=== PATIENT | male | born 1970 | race Caucasian/White ===

== ENCOUNTER 2019-12-28 09:47 | Inpatient (IN) ==
[2019-12-28] MEDS ORDERED: ACETAMINOPHEN 325 MG TAB PO PRN (10:19)
[2019-12-28] MEDS ORDERED: ONDANSETRON INJ 2 MG/ML 2 ML VIAL IV PRN (10:19)
[2019-12-28] MEDS ORDERED: POLYETHYLENE (MIRALAX) 17 GM PACK PO PRN (10:19)
[2019-12-28] MEDS ORDERED: NITROGLYCERIN SL 0.4 MG/TAB TAB SL PRN (10:19)
[2019-12-28] MEDS ORDERED: ALUMINUM/MAGNESIUM SUSP 30 ML UDC PO PRN (10:19)
--- NOTE | 2019-12-28 10:24 | History & Physical Report ---
Date of Service December 28, 2019 Assessment & Plan (1) Unstable angina: Patient presents with typical symptoms of angina, chest heaviness, shortness of breath, with exertion, Pain radiating down to left arm and finger, associated with dizzy spell, lightheadedness, nausea CT chest with contrast done in [facility]: Negative for PE Coronary artery disease/coronary ischemia risk factors: Significant family history of premature coronary artery disease: Father CT at age 30s, had approximately [address] Grandfather: sudden cardiac at age 50s History of hypertension Ongoing smoking Admitted to telemetry floor, at present chest pain-free Cardiology eval requested Patient will need resting echo, cardiac stress test, cardiac angiogram/cardiac cath if needed Fasting lipid panel ordered in a.m. for risk stratification High blood pressure: BP stable continue lisinopril 40 mg daily Anxiety disorder: Continue outpatient med Lexapro 10 mg daily DVT prophylaxis: Subcu heparin CODE STATUS: Full code Disposition: Patient will be discharged home when medically stable Admission and Anticipated Discharge Date Admission Date: December 28, 2019 History of Present Illness Chief Complaint: Chest pain, chest heaviness Primary Care Provider: Pallavi Chin this Is a 49-year-old male with past medical history of high blood pressure, depression, presented to the ER in [facility] with symptoms of chest heaviness, dyspnea on exertion, starting for last 2-3 days. This Thursday patient felt very weak and fatigued, slept most part of the day, No fever or chills, has chronic nonproductive cough(Patient is a current smoker smokes 1 and half pack cigarettes a day.) Was seen in ER at [facility] 2 days ago, for chest pain, Noted to have elevated blood pressure, patient was discharged from ER with recommendation for outpatient follow-up. Yesterday patient felt chest heaviness on the left side with tingling and numbness radiating down to left arm and finger, associated with dizzy spell lightheadedness, nausea Came to [place] ER, symptom resolved after Nitropaste CTA chest negative for PE Troponin 0, EKG does not show any acute ST-T wave changes Been very concerning symptoms of unstable angina, patient will benefit with further cardiac work-up including diagnostic cardiac angiogram. [place] does not have a cardiac Drip Box Tender, Patient is transferred to [facility] for further care. Patient seen at bedside in room 222/1 Feels much better, having headaches due to Nitropaste. Not have any shortness of breath, complains of mild chest heaviness after Nitropaste was discontinued, No pleuritic chest pain, orthopnea,Vital stable Allergies Allergy/AdvReac Type Severity Reaction Status Date / Time prednisone AdvReac Unknown Verified 12/28/19 10:25 Home Medications Home Medications Medication Instructions Recorded Confirmed Type escitalopram oxalate mg 12/28/19 History lisinopril 12/28/19 History pantoprazole 40 mg PO DAILY 12/28/19 12/28/19 History Past Med/Surg History Social History Smoking Status: Current every day smoker Hx Alcohol Use: No Hx Substance Use: No Preferred Language: French Desktop Support Associate Required: No Beliefs That Will Affect Care: None Current Living Situation: Significant Other Other Information That Helps Us Care for You: No Feels Safe at Home: Yes Safety Concerns: Feels Safe At This Time Review of Systems Review of Systems: All systems reviewed & are unremarkable except as noted in HPI & below Constitutional: no fever, no body aches and no fatigue Respiratory: + cough and + dyspnea on exertion; no sputum production and no wheezing Cardiovascular: + chest pain, + chest pain with activity, + radiating jaw, neck or arm pain, + dyspnea, + dyspnea on exertion and + lightheadedness; no orthopnea, no syncope and no edema Physical Exam Constitutional: WD/WN, vitals as above no acute distress Eyes: PERRL, conjunctivae normal, anicteric sclerae ENMT: external ear and nose normal, oropharynx normal Neck: trachea midline, no thyromegaly Respiratory: normal respiratory effort, lungs clear to auscultation Cardiovascular: RRR, no murmur, no edema Gastrointestinal (Abdomen): Percussion/Palpation: abdomen soft; abdomen nontender Musculoskeletal: no cyanosis or clubbing, extremities motor strength 5/5 Skin: no rashes, warm and dry Neurologic: PERRL, EOMI, accommodation nl, no face palsy, no dysarthria Psychiatric: A+Ox3, euthymic affect Code Status & VTE Plan VTE Prophylaxis Plan VTE Prophylaxis will be ordered: Yes
[2019-12-28 11:05] LABS: Hematocrit (blood only) 40.9 % (42-52); Mean Corpuscular Hemoglobin 29.9 pg (25-34); Mean Corpuscular Hgb Conc 34.2 g/dL (32-36); Mean Corpuscular Volume 87.2 fL (80-100); Mean Platelet Volume 9.7 fL (7.4-10.4); Platelet Count 192 K/uL (130-400); RDW Coefficient of Variation 13.6 % (11.5-14.5); RDW Standard Deviation 43.2 fL (36.4-46.3); Red Blood Count 4.69 M/uL (4.7-6.1); White Blood Count 8.57 K/uL (4.8-10.8)
[2019-12-28] MEDS ORDERED: NITROGLYCERIN 2% OINTMENT 30GM TUBE EXT SCH (12:30)
--- NOTE | 2019-12-28 13:39 | Cardiology Consultation ---
Date of Consultation December 28, 2019 Assessment & Plan (1) Chest pain: (2) Hypertension: (3) Tobacco abuse: Initial work-up unremarkable for ischemia without significant EKG abnormalities or troponin elevation despite 5 days of symptoms. Resting echocardiogram unremarkable and proceed with exercise stress echocardiogram. Patient completed 11 minutes and 30 seconds of Prakash protocol without reproduction of chest discomfort. His blood pressure response to exercise was hypertensive. Given the above findings I do not see any cardiac causes for his chest discomfort. No further cardiac testing or intervention is necessary from a cardiac standpoint. Would consider musculoskeletal/sports medicine evaluation as an outpatient for a possible cervical or shoulder pathology. Cigarette abuse cessation discussed at great lengths. Recommend addition of aspirin 81 mg daily for primary prevention given his risk factors of tobacco abuse and father developing coronary disease in his 30s. Should follow-up with PCP for further risk management including blood pressure monitoring as well as lipid management. Okay to discharge from a cardiac standpoint History of Present Illness Reason for Consultation: chest pain Requesting Physician: Dr. Tipton Attending Physician: Ilda Tipton MD History of Present Illness Mr. Velez is a very pleasant 49-year-old gentleman who was transferred to [facility] directly from [place] emergency department for complaints of chest pain. He states his pain started approximately 5 days ago. He states he remembers waking up Thursday morning and just happened to have some chest discomfort. He states it was initially sharp and stabbing but that sensation was fleeting and then became more of a dull achy sensation. He states that over the next 5 days this discomfort waxed and waned and again with periods of sharp pain. He denied any associated symptoms until this morning when he developed concomitant tingling in his left shoulder that radiated down into his left hand noting particularly that his left second and third fingers were numb. At that time he sought medical attention at the emergency department. He denied any alleviating or aggravating factors. He denies any history of neck or shoulder pathology. No recent trauma to his chest and again he denied any associated shortness of breath, nausea, diaphoresis, palpitations, lightheadedness, dizziness or syncope. He states that the discomfort resolved after receiving a nitro patch in the emergency department however caused a severe headache. He is currently chest pain-free. Allergies Allergy/AdvReac Type Severity Reaction Status Date / Time prednisone AdvReac Unknown Verified 12/28/19 10:25 Home Medications Home Medications Medication Instructions Recorded Confirmed Type escitalopram oxalate 10 mg PO DAILY 12/28/19 12/28/19 History lisinopril 40 mg PO DAILY 12/28/19 12/28/19 History pantoprazole 40 mg PO DAILY 12/28/19 12/28/19 History Patient History Medical History Anxiety GERD (gastroesophageal reflux disease) Hypertension Surgical History History of appendectomy History of colonoscopy History of esophagogastroduodenoscopy (EGD) History of herniorrhaphy Social History Smoking Status: Current every day smoker Hx Alcohol Use: No Hx Substance Use: No Preferred Language: Armenian Merchandiser Required: No Beliefs That Will Affect Care: None Current Living Situation: Significant Other Other Information That Helps Us Care for You: No Feels Safe at Home: Yes Safety Concerns: Feels Safe At This Time Review of Systems Review of Systems: All systems reviewed & are unremarkable except as noted in HPI & below Physical Exam Physical Exam: Physical Exam: General: Awake, alert and oriented x 3. No acute distress. HEENT: Normocephalic, atraumatic. Pupils equal, round and reactive to light and accommodation. Extraocular muscles are intact. Anicteric sclera. Moist mucous membranes. Neck: No JVD. No bruit. Cardiovascular: Regular. No S-4. Normal S-1 and S-2. No S-3. No murmurs, rubs or gallops. Pulmonary: Clear to auscultation bilaterally. No rales, rhonchi, or wheezing. Abdomen: Bowel sounds x 4, soft. No rebound, guarding or tenderness. No organomegaly. Extremities: No clubbing, cyanosis or edema. +2 pedal pulses bilaterally. Skin: Warm and dry. Results & Data ([facility]) Vital Signs (Past 12 Hours) Vital Signs Temp Pulse Resp BP BP Pulse Ox 12/28/19 11:52 36.8 C 57 L 18 126/70 98 12/28/19 10:20 36.6 C 63 16 133/94 99
[2019-12-28] MEDS ORDERED: HEPARIN SOD 5,000 UNIT/0.5 ML VIAL SQ SCH (14:00)
--- NOTE | 2019-12-28 15:46 | Communication Note ---
Date of Service: December 28, 2019 Patient's resting echocardiogram shows no wall motion abnormality, serial troponin was negative exercise Cardiac stress test shows negative for stress-induced ischemia Noncardiac chest pain, Stable to be discharged home by cardiology Patient is strongly counseled for smoking cessation Will be started with aspirin 81 mg daily for primary prevention, given patient has high risk for coronary artery disease family history of premature CAD, ongoing tobacco abuse Needs outpatient close follow-up with family physician for blood pressure monitoring, needs a fasting lipid panel to be checked Patient is discharged home today Ilda Tipton MD
--- NOTE | 2019-12-28 15:52 | Discharge Summary ---
Date of Service December 28, 2019 Admission HPI Per Admitting Provider this Is a 49-year-old male with past medical history of high blood pressure, depression, presented to the ER in [facility] with symptoms of chest heaviness, dyspnea on exertion, starting for last 2-3 days. This Thursday patient felt very weak and fatigued, slept most part of the day, No fever or chills, has chronic nonproductive cough(Patient is a current smoker smokes 1 and half pack cigarettes a day.) Was seen in ER at [facility] 2 days ago, for chest pain, Noted to have elevated blood pressure, patient was discharged from ER with recommendation for outpatient follow-up. Yesterday patient felt chest heaviness on the left side with tingling and numbness radiating down to left arm and finger, associated with dizzy spell lightheadedness, nausea Came to [place] ER, symptom resolved after Nitropaste CTA chest negative for PE Troponin 0, EKG does not show any acute ST-T wave changes Been very concerning symptoms of unstable angina, patient will benefit with further cardiac work-up including diagnostic cardiac angiogram. [place] does not have a cardiac Tanning Solution Maker, Patient is transferred to [facility] for further care. Patient seen at bedside in room 222/1 Feels much better, having headaches due to Nitropaste. Not have any shortness of breath, complains of mild chest heaviness after Nitropaste was discontinued, No pleuritic chest pain, orthopnea,Vital stable Principal Diagnosis Chest pain Negative exercise cardiac stress test, Family history of premature coronary artery disease Ongoing tobacco use Discharge Exam Constitutional WD/WN, vitals as above no acute distress Eyes PERRL, conjunctivae normal, anicteric sclerae ENMT external ear and nose normal, oropharynx normal Neck trachea midline, no thyromegaly Respiratory normal respiratory effort, lungs clear to auscultation Cardiovascular RRR, no murmur, no edema Gastrointestinal (Abdomen) Percussion/Palpation: abdomen soft; abdomen nontender Musculoskeletal no cyanosis or clubbing, extremities motor strength 5/5 Skin no rashes, warm and dry Neurologic PERRL, EOMI, accommodation nl, no face palsy, no dysarthria Psychiatric A+Ox3, euthymic affect Discharge Data Allergies Allergy/AdvReac Type Severity Reaction Status Date / Time prednisone AdvReac Unknown Verified 12/28/19 10:25 Consultations 12/28/19 10:19 Consult Cardiology Routine Hospital Course (1) Unstable angina: Patient presents with typical symptoms of angina, chest heaviness, shortness of breath, with exertion, Pain radiating down to left arm and finger, associated with dizzy spell, lightheadedness, nausea CT chest with contrast done in [facility]: Negative for PE Coronary artery disease/coronary ischemia risk factors: Significant family history of premature coronary artery disease: Father [place] at age 30s, had approximately 3 [place] Grandfather: sudden cardiac at age 50s History of hypertension Ongoing smoking Admitted to telemetry floor, at present chest pain-free Cardiology eval requested resting echo no wall motion abnormality, Exercise cardiac stress test, negative for stress-induced ischemia Stable to be discharged home today, added aspirin 81 mg daily Smoking cessation counseling provided Patient needs follow-up with family physician for blood pressure monitoring, and fasting lipid panel check High blood pressure: BP stable continue lisinopril 40 mg daily Anxiety disorder: Continue outpatient med Lexapro 10 mg daily DVT prophylaxis: Subcu heparin CODE STATUS: Full code Disposition: Patient is discharged home today Total Time Total Time Spent Total Time Spent (In Minutes): 35 mins Total Time Includes: Examination of the Patient, Discharge Planning, Medication Reconciliation and Communication With Other Providers Discharge Plan Discharge Items Patient Disposition: Home - Self-Care Reason For Visit: UNSTABLE ANGINA Discharge Diagnosis: Chest pain Negative exercise cardiac stress test, Family history of premature coronary artery disease Ongoing tobacco use Activity: Resume your previous activity Non-emergency contact: Primary Care Provider Call non-emergency contact if: you have any medication questions Follow-up/Referrals: Pallavi Chin M.D. [Primary Care Provider] - Diet: Heart Healthy Addtl Attending Provider Instructions: It is very important for you to quit smoking to prevent future episode of coronary artery disease, heart attack, stroke You are started on aspirin 81 mg daily Fasting lipid panel to be checked with next physician visit Pending Studies at Discharge: Yes Studies:: Fasting lipid panel Stand-Alone Forms: My [employer], Smoking Cessation Medications and DC Order Prescriptions: New aspirin 81 mg Tablet,Delayed Release (Dr/Ec) 81 mg PO QAM 30 Days Qty: 30 RF: 3 Continued lisinopril 40 mg tablet 40 mg PO DAILY RF: 0 escitalopram oxalate 10 mg tablet 10 mg PO DAILY RF: 0 pantoprazole 40 mg Tablet,Delayed Release (Dr/Ec) 40 mg PO DAILY RF: 0 Discharge Orders: Discharge Order (Routine); Ordered 12/28/19 Ordered By: Ilda Tipton Admission Data Admit Date/Time: 12/28/19 10:12 Attending Provider: Ilda Tipton Admit Provider: Ilda Tipton Primary Care Provider: Pallavi Chin Other Providers: Victor Hugo Keenan ; Leighton Gonzalez ; Rocky Rodriguez ; Endy Narayan ; Axel Mendez ; Vasquez Llamas ; Collette Johnston ; Rita Vieyra ; Martin Monteiro
[2019-12-29] MEDS ORDERED: lisinopriL 40 MG TAB PO SCH (09:00)
[2019-12-29] MEDS ORDERED: ASPIRIN 81 MG ECTAB PO SCH (09:00)
[2019-12-29] MEDS ORDERED: PANTOprazole 40 MG TAB PO SCH (09:00)
[2019-12-29] MEDS ORDERED: ESCITALOPRAM OXALATE 10 MG TAB PO SCH (09:00)
== END 2019-12-28 17:34 | disposition home or self-care (01) | DRG 303 ==
LOC: 2S 10:12